=== PATIENT | male | born 1995 | race African-American/Black ===

== ENCOUNTER 2019-03-01 16:20 | Emergency (ER) | payer SELFPAY ==
[~2019-03-01] VITALS: Ht 188 cm; Wt 70.3 kg
[2019-03-01 17:50] VITALS: BP 137/80
--- NOTE | 2019-03-01 17:59 | PHYS DOC ---
Past Medical History Smoking: Cigarettes, Less than 1pk/day Adult General Chief Complaint Chief Complaint: LACERATION/AVULSION HPI HPI Patient is a 23 year old who presents to the ER after cutting his right hand with glass at his mom's smoke shop this happened around 4:00 PM. The patient states he has no pain at this time and rates it 0 out of 10. The patient has not performed any interventions prior to arrival with exception of putting a rag on the cut. Review of Systems Review of Systems Constitutional: Denies fever or chills [] Eyes: Denies change in visual acuity, redness, or eye pain [] HENT: Denies nasal congestion or sore throat [] Respiratory: Denies cough or shortness of breath [] Cardiovascular: No additional information not addressed in HPI [] GI: Denies abdominal pain, nausea, vomiting, bloody stools or diarrhea [] : Denies dysuria or hematuria [] Musculoskeletal: Denies back pain or joint pain [] Integument: Denies rash or skin lesions but reports laceration to the right hand. Neurologic: Denies headache, focal weakness or sensory changes [] Endocrine: Denies polyuria or polydipsia [] Complete systems were reviewed and found to be within normal limits, except as documented in this note. Current Medications Current Medications Current Medications Medications (Trade) Dose Ordered Sig/Lopez Start Time Stop Time Status Last Admin Dose Admin Lidocaine HCl (Lidocaine 1% 20ml Vial) 20 ml 1X ONCE 03/01/19 18:00 03/01/19 18:01 DC Allergies Allergies Allergies Coded Allergies Type Severity Reaction Last Updated Verified No Known Drug Allergies 03/01/19 No Physical Exam Physical Exam Constitutional: Well developed, well nourished, no acute distress, non-toxic appearance. [] HENT: Normocephalic, atraumatic, bilateral external ears normal, oropharynx moist, no oral exudates, nose normal. [] Eyes: PERRLA, EOMI, conjunctiva normal, no discharge. [] Neck: Normal range of motion, no tenderness, supple, no stridor. [] Cardiovascular:Heart rate regular rhythm, no murmur [] Lungs & Thorax: Bilateral breath sounds clear to auscultation [] Abdomen: Bowel sounds normal, soft, no tenderness, no masses, no pulsatile masses. [] Skin: Warm, dry, no erythema, no rash. Has laceration around 2 cm with bleeding controlled in the webbing between the 1st and 2nd digit on the right hand. Back: No tenderness, no CVA tenderness. [] Extremities: No tenderness, no cyanosis, no clubbing, ROM intact, no edema. [] Neurologic: Alert and oriented X 3, normal motor function, normal sensory function, no focal deficits noted. [] Psychologic: Affect normal, judgement normal, mood normal. [] Current Patient Data Vital Signs Vital Signs Date Time Temp Pulse Resp B/P (MAP) Pulse Ox O2 Delivery O2 Flow Rate FiO2 03/01/19 17:50 98.4 76 16 137/80 (99) 99 Room Air 98.4 EKG EKG [] Radiology/Procedures Radiology/Procedures Indication: Laceration Procedure: The patient was placed in the appropriate position and anesthesia around the 3 mL of Lidocaine 1%. The area was then debrided with 120 mL of normal saline. The laceration was closed with 3-0 nylon sutures (5). The wound area was then dressed with neosporin and wound dressing. Total repaired wound length: 2 cm The patient tolerated the procedure. Complications: None []PATIENT: OSBALDO DOMINGUEZACCOUNT: [id number]#: [id number] : 1995 LOCATION: ER AGE: 23 SEX: M EXAM STATUS: PRE ER ORD. PHYSICIAN: MAKENZIE AGUILAR APRN REASON: 2nd laceration PROCEDURE: HAND RIGHT 3V EXAM: Right hand, 3 views. HISTORY: Laceration. COMPARISON: None. FINDINGS: 3 views of the right hand are obtained. There is no fracture, dislocation or subluxation. No radiodense foreign body is seen. IMPRESSION: No acute osseous finding. Electronically signed by: Mary Ellen Novak MD (03/01/2019 6:15 PM) [facility] Course & Med Decision Making Course & Med Decision Making Pertinent Labs and Imaging studies reviewed. (See chart for details) Will obtain imaging and then suture the laceration. The patient is agreeable. Xray was negative. Sutured patient. Will d/c home on Keflex. Dragon Disclaimer Dragon Disclaimer This electronic medical record was generated, in whole or in part, using a voice recognition dictation system. Departure Departure Impression: Primary Impression: Laceration Disposition: HOME, SELF-CARE Condition: STABLE Patient Instructions: Laceration Care, Adult Additional Instructions: Please have sutures taken out in 7 days. Come back to ER if any signs or symptoms of infection. Take antibiotics as directed. Keep wound clean and put Neosporin on wound. Scripts Cephalexin (KEFLEX) 500 Mg Capsule 1 CAP PO BID for 7 Days, #14 CAP Prov: MAKENZIE AGUILAR APRN 03/01/19 MAKENZIE AGUILAR APRN Mar 01, 2019 17:59
[2019-03-01] MEDS ORDERED: LIDOCAINE 1% Multi-Dose 20 ML VIAL. INJ ONE (18:00)
--- NOTE | 2019-03-01 18:18 | RAD ---
EXAM: Right hand, 3 views. HISTORY: Laceration. COMPARISON: None. FINDINGS: 3 views of the right hand are obtained. There is no fracture, dislocation or subluxation. No radiodense foreign body is seen. IMPRESSION: No acute osseous finding. Electronically signed by: Mary Ellen Novak MD (03/01/2019 6:15 PM) [facility]
[2019-03-01] MEDS ORDERED: CEPH-264 PO (19:38)
[2019-03-01] MEDS ORDERED: NEOMY/BACITR/POLYMYXIN OINT PACKET. TP ONE (19:45)
== END 2019-03-01 19:54 | disposition home or self-care (01) ==
LOC: ER 16:20
DX: S61.411A Laceration without foreign body of right hand, initial encounter (principal); F17.210 Nicotine dependence, cigarettes, uncomplicated; W25.XXXA Contact with sharp glass, initial encounter; Y93.89 Activity, other specified; Y92.513 Shop (commercial) as the place of occurrence of the external cause; Y99.8 Other external cause status
CPT/HCPCS: 12001; 73130; 99284

== ENCOUNTER 2019-03-10 19:51 | Emergency (ER) | payer SELFPAY ==
[~2019-03-10] VITALS: Ht 188 cm; Wt 70.3 kg
[~2019-03-10 19:51] MED LIST: CEPH-264 PO
[2019-03-10 20:01] VITALS: BP 133/78
--- NOTE | 2019-03-10 20:41 | PHYS DOC ---
Past Medical History Past Medical History: No Pertinent History Past Surgical History: Other Additional Past Surgical Histo: Right knee sx. Alcohol Use: None Drug Use: None Adult General Chief Complaint Chief Complaint: SUTURE/STAPLE REMOVAL HPI HPI Patient is a 23 year old AA male who presents to the emergency Department today for suture removal. Patient states he was here on March 01, 2019 and had 5 stitches placed. He denies any redness, warmth, drainage, or fever. He denies any complaints at this time. Review of Systems Review of Systems Constitutional: Denies fever or chills [] Musculoskeletal: Denies joint pain [] Integument: See history of present illness Neurologic: Denies headache, focal weakness or sensory changes [] Allergies Allergies Allergies Coded Allergies Type Severity Reaction Last Updated Verified No Known Drug Allergies 03/01/19 No Physical Exam Physical Exam Constitutional: Well developed, well nourished, no acute distress, non-toxic appearance. [] HENT: Normocephalic, atraumatic, bilateral external ears normal, nose normal. [] Eyes: conjunctiva normal, no discharge. [] Neck: Normal range of motion, no stridor. [] Cardiovascular:Heart rate regular rhythm Lungs & Thorax: Respirations even and unlabored, no retractions, no respiratory distress Skin: Warm, dry, no erythema, laceration to right hand edges are well approximated with no drainage, or wound dehiscence Extremities: No tenderness, no cyanosis, ROM intact, no edema. [] Neurologic: Alert and oriented X 3, normal motor function, normal sensory function, no focal deficits noted. [] Psychologic: Affect normal, judgement normal, mood normal. [] Current Patient Data Vital Signs Vital Signs Date Time Temp Pulse Resp B/P (MAP) Pulse Ox O2 Delivery O2 Flow Rate FiO2 03/10/19 20:01 98.8 84 18 133/78 (96) 97 Room Air 98.8 EKG EKG [] Radiology/Procedures Radiology/Procedures [] Course & Med Decision Making Course & Med Decision Making Pertinent Labs and Imaging studies reviewed. (See chart for details) [] Dragon Disclaimer Dragon Disclaimer This electronic medical record was generated, in whole or in part, using a voice recognition dictation system. Departure Departure Impression: Primary Impression: Visit for suture removal Disposition: HOME, SELF-CARE Condition: STABLE Referrals: NO PCP (PCP) Patient Instructions: Suture Removal-Brief Additional Instructions: Keep area clean and dry. Follow-up with primary care doctor as needed. Return to the ER for any worsening symptoms. MARCO GOMEZ [employer] MANAGER Mar 10, 2019 20:41
== END 2019-03-10 20:46 | disposition home or self-care (01) ==
LOC: ER 19:51
DX: S61.411D Laceration without foreign body of right hand, subsequent encounter (principal); X58.XXXD Exposure to other specified factors, subsequent encounter
CPT/HCPCS: 99281

== ENCOUNTER 2019-12-31 21:57 | Emergency (ER) | payer SELFPAY ==
[~2019-12-31] VITALS: Ht 188 cm; Wt 90.9 kg
[2019-12-31] MEDS ORDERED: AZITHROMYCIN 250 MG TABLET. PO ONE (22:45)
[2019-12-31] MEDS ORDERED: PENICILLIN G BENZATHINE LA 2,400,000 UNIT/4 ML DISP.SYRIN. IM ONE (22:45)
--- NOTE | 2019-12-31 23:11 | PHYS DOC ---
Past Medical History Past Medical History: No Pertinent History Past Surgical History: Other Additional Past Surgical Histo: Right knee sx. Smoking Status: Light Tobacco Smoker Alcohol Use: None Drug Use: None General Adult EDM: Chief Complaint: SEXUALLY TRANSMITTED DISEASE HPI: HPI: Patient is a 24 year old male who presents with complaint of lesion on his penis that he noticed a few days ago. Patient states that he had his partner had gone in for STD testing yesterday but he states that the sores getting bigger. Patient indicates the sores not painful. He denies any painful urination. He denies any penile discharge.[] Review of Systems: Review of Systems: Constitutional: Denies fever or chills. [] Respiratory: Denies cough or shortness of breath. [] Cardiovascular: Denies chest pain or edema. [] : Denies dysuria. Positive penile lesion [] Neurologic: Denies headache, focal weakness or sensory changes. [] Heart Score: Risk Factors: Risk Factors: DM, Current or recent (<one month) smoker, HTN, HLP, family history of CAD, obesity. Risk Scores: Score 0 - 3: 2.5% MACE over next 6 weeks - Discharge Home Score 4 - 6: 20.3% MACE over next 6 weeks - Admit for Clinical Observation Score 7 - 10: 72.7% MACE over next 6 weeks - Early Invasive Strategies Current Medications: Current Medications Medications (Trade) Dose Ordered Sig/Lopez Start Time Stop Time Status Last Admin Dose Admin Azithromycin (Zithromax) 1,000 mg 1X ONCE 12/31/19 22:45 12/31/19 22:46 DC 12/31/19 23:03 1,000 MG Penicillin G Benzathine (Bicillin L-A) 2,400,000 unit 1X ONCE 12/31/19 22:45 12/31/19 22:46 DC 12/31/19 23:03 2,400,000 UNIT Allergies: Allergies: Allergies Coded Allergies Type Severity Reaction Last Updated Verified No Known Drug Allergies 03/01/19 No Physical Exam: PE: Constitutional: Well developed, well nourished, no acute distress, non-toxic appearance. [] Cardiovascular:Heart rate regular rhythm, no murmur [] Lungs & Thorax: Bilateral breath sounds clear to auscultation [] Abdomen: Bowel sounds normal, soft, no tenderness, no masses, no pulsatile masses. [] Skin: Warm, dry, no erythema, no rash. [] : There is an ulcerative lesion noted around the foreskin just above the glans, approximately 3-4 mm in diameter. [] Extremities: No tenderness, no cyanosis, no clubbing, ROM intact, no edema. [] Current Patient Data: Vital Signs: Vital Signs Date Time Temp Pulse Resp B/P (MAP) Pulse Ox O2 Delivery O2 Flow Rate FiO2 12/31/19 22:12 98.3 109 16 157/83 (107) 96 Room Air 98.3 EKG: EKG: [] Radiology/Procedures: Radiology/Procedures: [] Course & Med Decision Making: Course & Med Decision Making Pertinent Labs and Imaging studies reviewed. (See chart for details) Based upon appearance of penile lesion, I would suspect either syphilis or chancroid. Given that lesion is not painful, syphilis would be higher incidence suspicion. Patient given 2.4 million units of benzathine penicillin G IM as well as 1 g of Zithromax by mouth, both of which would be curative for syphilis and chancroid. Zack Disclaimer: Zack Disclaimer: This electronic medical record was generated, in whole or in part, using a voice recognition dictation system. Departure Departure Impression: Primary Impression: Sexually transmitted disease Disposition: HOME, SELF-CARE Condition: STABLE Referrals: NO PCP (PCP) Patient Instructions: Sexually Transmitted Disease KATHY WEBSTER Jr. DO Dec 31, 2019 23:11
[2019-12-31 23:23] VITALS: BP 138/52
== END 2019-12-31 23:24 | disposition home or self-care (01) ==
LOC: ER 21:57
DX: A64 Unspecified sexually transmitted disease (principal); N48.89 Other specified disorders of penis; Z98.890 Other specified postprocedural states; Z87.891 Personal history of nicotine dependence
CPT/HCPCS: 36415; 86592; 96372; 99283; J0561

== ENCOUNTER 2020-05-16 14:13 | Emergency (ER) | payer SELFPAY ==
[~2020-05-16] VITALS: Ht 188 cm; Wt 100.0 kg
[2020-05-16 14:15] VITALS: BP 161/98
--- NOTE | 2020-05-16 14:17 | PHYS DOC ---
Past Medical History Past Medical History: No Pertinent History Past Surgical History: Other Additional Past Surgical Histo: Right knee sx. Smoking Status: Light Tobacco Smoker Alcohol Use: None Drug Use: None General Adult EDM: Chief Complaint: SEXUALLY TRANSMITTED DISEASE HPI: HPI: Patient is a 24 year old male who presents with a chief complaint of a genital lesion. The lesion began several days ago. Patient had unprotected intercourse 3 to 4 days prior to the lesion occurring. Patient describes painful/burning/itching lesion. Patient also has some large lymphadenopathy in the inguinal region. Patient denies any abdominal pain, fever, chills, cough, trouble breathing Review of Systems: Review of Systems: Constitutional: Denies fever or chills. [] Eyes: Denies change in visual acuity. [] HENT: Denies nasal congestion or sore throat. [] Respiratory: Denies cough or shortness of breath. [] Cardiovascular: Denies chest pain or edema. [] GI: Denies abdominal pain, nausea, vomiting, bloody stools or diarrhea. [] : Complains of genital lesion Musculoskeletal: Denies back pain or joint pain. [] Integument: Denies rash. [] Neurologic: Denies headache, focal weakness or sensory changes. [] Endocrine: Denies polyuria or polydipsia. [] Lymphatic: Complains of inguinal lymphadenopathy Psychiatric: Denies depression or anxiety. [] Heart Score: Risk Factors: Risk Factors: DM, Current or recent (<one month) smoker, HTN, HLP, family history of CAD, obesity. Risk Scores: Score 0 - 3: 2.5% MACE over next 6 weeks - Discharge Home Score 4 - 6: 20.3% MACE over next 6 weeks - Admit for Clinical Observation Score 7 - 10: 72.7% MACE over next 6 weeks - Early Invasive Strategies Allergies: Allergies: Allergies Coded Allergies Type Severity Reaction Last Updated Verified No Known Drug Allergies 03/01/19 No Physical Exam: PE: Constitutional: Well developed, well nourished, no acute distress, non-toxic appearance. [] HENT: Normocephalic, atraumatic, bilateral external ears normal, no trismus, nose normal. [] Eyes: PERRLA, EOMI, conjunctiva normal, no discharge. [] Neck: Normal range of motion, no tenderness, supple, no stridor. [] Cardiovascular:Heart rate regular rhythm, peripheral pulses intact, cap refill brisk Lungs & Thorax: Bilateral breath sounds clear, no respiratory distress Abdomen: soft, no tenderness, no masses, no pulsatile masses. [] exam: Multiple vesicular lesions on the glans and shaft of the penis. Skin: Multiple vesicular lesions on the penis Back: No tenderness, no CVA tenderness. [] Extremities: No tenderness, no cyanosis, no clubbing, ROM intact, no edema. [] Inguinal lymphadenopathy Neurologic: Alert and oriented X 3, normal motor function, normal sensory function, no focal deficits noted. [] Psychologic: Affect normal, judgement normal, mood normal. [] Current Patient Data: Vital Signs: Vital Signs Date Time Temp Pulse Resp B/P (MAP) Pulse Ox O2 Delivery O2 Flow Rate FiO2 05/16/20 14:15 98.7 110 16 161/98 (119) 96 Room Air 98.7 EKG: EKG: [] Radiology/Procedures: Radiology/Procedures: [] Course & Med Decision Making: Course & Med Decision Making Pertinent Labs and Imaging studies reviewed. (See chart for details) [] 22-year-old male presents with penile lesions. Lesions are consistent with herpes. Blood work redrawn for herpes IgM as well as RPR to rule out syphilis. Patient has provided urine sample to rule out GC and chlamydia. Patient was placed on acyclovir. Dragon Disclaimer: Dragmitra Disclaimer: This electronic medical record was generated, in whole or in part, using a voice recognition dictation system. Departure Departure Impression: Primary Impression: Herpes genitalis in men Disposition: HOME, SELF-CARE Condition: STABLE Referrals: NO PCP (PCP) PCP 2-3 DAYS Patient Instructions: Genital Herpes Additional Instructions: EMERGENCY DEPARTMENT GENERAL DISCHARGE INSTRUCTIONS THANK YOU for coming to [facility] Emergency Department (ED) today and trusting us with your care. We trust that you had a positive experience in our Emergency Department. If you wish to speak to the department Management you can contact the transportation department supervisor at . YOUR FOLLOW UP INSTRUCTIONS ARE FOLLOWS: Do you have a private doctor? If you do not have a private doctor, please ask for a resource list of physicians or clinics that may be able to assist you with follow up care. The Emergency Physician has interpreted your x-rays. The X-ray specialist will also review them. If there is a change in the findings you will be notified in 48 hours when at all possible. A lab test or lab culture may have been done, your results will be reviewed and you will be notified if you need a change in treatment. ADDITIONAL INSTRUCTIONS AND INFORMATION Your care today has been supervised by a physician who is specially trained in emergency care. Many problems require more than one evaluation for a complete diagnosis and treatment. We recommend that you schedule your follow up appointment as recommended to ensure complete treatment of your illness or injury. If you are unable to obtain follow up care and continue to have a problem, or if your condition worsens we recommend that you return to the ED. We are not able to safely determine your condition over the phone nor are we able to give sound medical advice over the phone. For these safety reasons, if you call for medical advice we will ask you to come to the ED for further evaluation If you have any questions regarding these discharge instructions please call the ED at . SAFETY INFORMATION In the interest of safety, wellness, and injury prevention; we encourage you to wear your seatbelt, if you smoke; quit smoking, and we encourage your family to use protective helmet for bicycling and other sporting events that present an increased risk for head injury. IF YOUR SYMPTOMS WORSEN OR NEW SYMPTOMS DEVELOP, OR YOU HAVE CONCERNS ABOUT YOUR CONDITION; OR IF YOUR CONDITION WORSENS WHILE YOU ARE WAITING FOR YOUR FOLLOW UP APPOINTMENT; EITHER CONTACT YOUR PRIMARY CARE DOCTOR, THE PHYSICIAN WHOSE NAME AND NUMBER YOU WERE GIVEN, OR RETURN TO THE ED IMMEDIATELY. Scripts Acyclovir (ACYCLOVIR) 400 Mg Tablet 1 TAB PO TID for 10 Days, #30 TAB Prov: DARIO ZHAO MD 05/16/20 Justicifation of Admission Dx: Justifications for Admission: Justification of Admission Dx: N/A DARIO ZHAO MD May 16, 2020 14:17
[2020-05-16] MEDS ORDERED: ACYC400T PO (14:37)
[2020-05-16 14:44] LABS: BILIRUBIN,URINE NEGATIVE (NEG); CLARITY,URINE CLEAR; NITRITE,URINE NEGATIVE (NEG); PROTEIN,URINE NEGATIVE (NEG-TRACE)
[2020-05-16 15:07] LABS: COLOR,URINE DK YELLOW; SQUAMOUS EPITHELIAL CELL,UR FEW /LPF
[2020-05-16 15:08] LABS: BACTERIA,URINE 0 /HPF (0-FEW); RBC,URINE 0 /HPF (0-2)
== END 2020-05-16 14:50 | disposition home or self-care (01) ==
LOC: ER 14:13
DX: B00.9 Herpesviral infection, unspecified (principal); Z98.890 Other specified postprocedural states
CPT/HCPCS: 81001; 86592; 86695; 86696; 87491; 87591; 99283